=== PATIENT | female | born 1975 | race African-American/Black ===

== ENCOUNTER 2017-09-12 09:58 | Emergency (ER) | payer BC ==
[~2017-09-12] VITALS: Ht 170.2 cm; Wt 63.5 kg
[2017-09-12] MEDS ORDERED: SODIUM CHLORIDE 0.9% 1000ML 1,000 ML IV STA (10:23)
[2017-09-12 11:16] LABS: BASOPHILS # (AUTO) 0.1 (0.0-0.1); BASOPHILS % 0.8 % (0.0-1.0); EOSINOPHILS % 0.6 % (0.0-6.0); HEMATOCRIT 37.3 % (34.2-44.1); HEMOGLOBIN 12.7 g/dL (12.0-16.0); LYMPHOCYTES # (AUTO) 2.1 (1.0-3.2); LYMPHOCYTES % 32.4 % (18.0-39.1); MONOCYTES # (AUTO) 0.4 (0.2-0.8); MONOCYTES % 6.2 % (4.4-11.3); NEUTROPHILS # (AUTO) 3.8 (2.1-6.9); NEUTROPHILS % 59.7 % (38.7-80.0); PLATELET COUNT 277 x10e3/uL (140-360); RED BLOOD COUNT 3.97 x10e6/uL (3.6-5.1)
[2017-09-12 11:28] LABS: INR 0.89; PROTHROMBIN TIME 12.5 seconds (11.9-14.5)
[2017-09-12 11:29] LABS: PARTIAL THROMBOPLASTIN TIME 33.2 seconds (23.8-35.5)
[2017-09-12 11:35] LABS: ALANINE AMINOTRANSFERASE 11 IU/L (0-55); ALBUMIN 3.8 g/dL (3.5-5.0); ALBUMIN/GLOBULIN RATIO 0.9 (0.8-2.0); ALKALINE PHOSPHATASE 49 IU/L (40-150); ANION GAP 11.6 mmol/L (8-16); BLOOD UREA NITROGEN 11 mg/dL (7-26); BUN/CREATININE RATIO 13 (6-25); CALCIUM 8.7 mg/dL (8.4-10.2); CARBON DIOXIDE 22 mmol/L (22-29); CHLORIDE 107 mmol/L (98-107); CREATININE, SERUM 0.88 mg/dL (0.57-1.11); EST GLOMERULAR FILTRATION RATE > 60 ML/MIN (60-); GLUCOSE 92 mg/dL (74-118); POTASSIUM 3.6 mmol/L (3.5-5.1); SODIUM 137 mmol/L (136-145)
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
[2017-09-12 13:47] VITALS: BP 129/71
[2017-09-12] MEDS ORDERED: IOPAMIDOL 370 MG/ML 200 ML INFUS..BTL INJ ONE (21:26)
[2017-09-12] MEDS ORDERED: SODIUM CHLORIDE 0.9% 50ML 50 ML ONE (21:26)
== END 2017-09-12 13:58 | disposition home or self-care (01) ==
LOC: ER 09:58
DX: M54.2 Cervicalgia (principal); S16.1XXA Strain of muscle, fascia and tendon at neck level, initial encounter; M54.5 Low back pain; S20.211A Contusion of right front wall of thorax, initial encounter; S70.01XA Contusion of right hip, initial encounter; V43.53XA Car driver injured in collision with pick-up truck in traffic accident, initial encounter; Y92.488 Other paved roadways as the place of occurrence of the external cause
CPT/HCPCS: 36415; 70450; 71045; 72100; 72125; 73502; 74177; 80053; 84702; 85025; 85610; 85730; 99284; J7030; Q9967

== ENCOUNTER 2017-09-30 08:00 | Outpatient (RCR) | payer BC | END 2017-10-01 | LOC: PT 08:00 | PROVIDERS: ATTEND Family Medicine | DX: M54.2 Cervicalgia (principal); M54.6 Pain in thoracic spine; M54.5 Low back pain ==

== ENCOUNTER 2017-10-27 11:00 | Outpatient (RCR) | payer BC | END 2017-11-01 | LOC: PT 11:00 | PROVIDERS: ATTEND Family Medicine | DX: M54.2 Cervicalgia (principal); M54.6 Pain in thoracic spine; M54.5 Low back pain ==

== ENCOUNTER 2017-11-05 11:14 | Outpatient (RCR) | payer BC | END 2017-12-01 | LOC: PT 11:14 | PROVIDERS: ATTEND Family Medicine | DX: M54.2 Cervicalgia (principal); M54.6 Pain in thoracic spine; M54.5 Low back pain ==

== ENCOUNTER 2018-09-02 11:44 | Emergency (ER) | payer BC ==
[~2018-09-02] VITALS: Ht 170.2 cm; Wt 63.5 kg
[2018-09-02] MEDS ORDERED: CEFTRIAXONE SOD 1 GM VIAL IM ONE (12:15)
== END 2018-09-02 12:30 | disposition home or self-care (01) ==
LOC: FSED 11:44
DX: R05 Cough (principal); R51 Headache; J02.9 Acute pharyngitis, unspecified; J01.00 Acute maxillary sinusitis, unspecified; J01.10 Acute frontal sinusitis, unspecified
CPT/HCPCS: 87400; 99283; J0696

== ENCOUNTER 2018-10-22 07:39 | Emergency (ER) | payer BC ==
[~2018-10-22] VITALS: Ht 170.2 cm; Wt 63.5 kg
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
[2018-10-22 08:01] VITALS: BP 121/82
== END 2018-10-22 08:20 | disposition home or self-care (01) ==
LOC: ER 07:39
DX: J68.9 Unspecified respiratory condition due to chemicals, gases, fumes and vapors (principal)
CPT/HCPCS: 99282

== ENCOUNTER 2019-11-21 23:31 | Emergency (ER) | payer BC ==
[~2019-11-21] VITALS: Ht 170.2 cm; Wt 70.8 kg
[2019-11-22] MEDS ORDERED: CEFTRIAXONE SOD 1 GM VIAL IM ONE (00:15)
[2019-11-22] MEDS ORDERED: KETOROLAC TROMETHAMINE 60 MG/2 ML VIAL IM ONE (00:15)
[2019-11-22] MEDS ORDERED: CEFTRIAXONE SOD 1 GM VIAL ONE (00:17)
[2019-11-22] MEDS ORDERED: KETOROLAC TROMETHAMINE 60 MG/2 ML VIAL ONE (00:17)
[2019-11-22] MEDS ORDERED: LIDOCAINE HCL 1% LOCAL INJ 20 ML VIAL ONE (00:19)
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
[2019-11-22] MEDS ORDERED: BACTRIM DS TAB1 EACH PO (01:33)
[2019-11-22] MEDS ORDERED: ULTRAM50 MG PO (01:33)
[2019-11-22] MEDS ORDERED: KETOROLAC TROME10 MG PO (01:33)
[2019-11-22] MEDS ORDERED: MAGNESIUM CITR296 ML PO (01:33)
== END 2019-11-22 01:50 | disposition home or self-care (01) ==
LOC: FSED 23:31
DX: M54.5 Low back pain (principal); N10 Acute pyelonephritis; N12 Tubulo-interstitial nephritis, not specified as acute or chronic; K59.00 Constipation, unspecified
CPT/HCPCS: 74176; 81003; 99283; J0696; J1885; J2001

== ENCOUNTER 2019-12-04 18:46 | Inpatient (IN) | payer BC, OTHER ==
[~2019-12-04] VITALS: Ht 170.2 cm; Wt 74.4 kg
[~2019-12-04 18:46] MED LIST: BACTRIM DS TAB1 EACH PO; KETOROLAC TROME10 MG PO; MAGNESIUM CITR296 ML PO; ULTRAM50 MG PO
[2019-12-04] MEDS ORDERED: ONDANSETRON HCL INJ 2MG/ML 2ML 2 MG/ML VIAL IV NR (19:01)
[2019-12-04] MEDS ORDERED: KETOROLAC TROMETHAMINE 30 MG/ML VIAL IV NR (19:01)
[2019-12-04] MEDS ORDERED: SODIUM CHLORIDE 0.9% 1000ML 1,000 ML IV STA (19:01)
[2019-12-04 19:18] LABS: BASOPHILS # (AUTO) 0.1 (0.0-0.1); BASOPHILS % 0.9 % (0.0-1.0); EOSINOPHILS # (AUTO) 0.2 (0.0-0.4); EOSINOPHILS % 2.4 % (0.0-6.0); HEMATOCRIT 37.8 % (34.2-44.1); LYMPHOCYTES # (AUTO) 3.9 (1.0-3.2); LYMPHOCYTES % 39.6 % (18.0-39.1); MEAN CORPUSCULAR HEMOGLOBIN 32.3 pg (28-32); MEAN CORPUSCULAR HGB CONC 34.4 g/dL (31-35); MONOCYTES # (AUTO) 0.8 (0.2-0.8); MONOCYTES % 7.9 % (4.4-11.3); NEUTROPHILS # (AUTO) 4.8 (2.1-6.9); NEUTROPHILS % 48.8 % (38.7-80.0); PLATELET COUNT 328 x10e3/uL (140-360); RED BLOOD COUNT 4.02 x10e6/uL (3.6-5.1); RED CELL DISTRIBUTION WIDTH 12.2 % (11.7-14.4)
[2019-12-04 19:24] LABS: CLARITY,URINE CLOUDY (CLEAR); COLOR,URINE YELLOW (YELLOW)
[2019-12-04 19:25] LABS: BILIRUBIN,URINE NEGATIVE (NEGATIVE); KETONES,URINE NEGATIVE (NEGATIVE); LEUKOCYTE ESTERASE ,URINE LARGE (NEGATIVE); NITRITE,URINE NEGATIVE (NEGATIVE); PROTEIN,URINE DIPSTICK NEGATIVE (NEGATIVE); URINE UROBILINOGEN 0.2 mg/dL (0.2 - 1)
[2019-12-04 19:26] LABS: PREGNANCY TEST, URINE NEGATIVE (NEGATIVE)
[2019-12-04] MEDS ORDERED: CEFTRIAXONE SOD 2 GM/NS 100 ML 100 ML IV ONE (19:30)
[2019-12-04 19:31] LABS: BACTERIA,URINE MODERATE /HPF; EPITHELIAL CELLS,URINE MANY /LPF; RBC,URINE 0-5 /HPF (0-5); WBC,URINE (MAN) >50 /HPF (0-5)
[2019-12-04 19:42] LABS: ALANINE AMINOTRANSFERASE 13 IU/L (0-55); ALBUMIN 3.9 g/dL (3.5-5.0); ALBUMIN/GLOBULIN RATIO 0.9 (0.8-2.0); ALKALINE PHOSPHATASE 70 IU/L (40-150); ANION GAP 13.3 mmol/L (8-16); BLOOD UREA NITROGEN 12 mg/dL (7-26); BUN/CREATININE RATIO 14 (6-25); CALCIUM 9.6 mg/dL (8.4-10.2); CARBON DIOXIDE 24 mmol/L (22-29); CHLORIDE 103 mmol/L (98-107); CREATININE, SERUM 0.86 mg/dL (0.57-1.11); EST GLOMERULAR FILTRATION RATE > 60 ML/MIN (60-); GLUCOSE 94 mg/dL (74-118); POTASSIUM 4.3 mmol/L (3.5-5.1); SODIUM 136 mmol/L (136-145)
[2019-12-04] MEDS ORDERED: SODIUM CHLORIDE 0.9% 50ML 50 ML ONE (19:59)
[2019-12-04] MEDS ORDERED: IOPAMIDOL 370 MG/ML 200 ML INFUS..BTL INJ ONE (19:59)
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
[2019-12-04] MEDS ORDERED: SODIUM CHLORIDE 0.9% 1000ML 1,000 ML IV SCH (21:45)
[2019-12-04 23:15] VITALS: BP 123/79
[2019-12-04] MEDS: MORPHINE SULFATE 2 MG/ML SYR 1ML IV PRN (23:15)
[2019-12-04] MEDS: ONDANSETRON HCL INJ 2MG/ML 2ML 2 MG/ML VIAL IV PRN (23:15)
[2019-12-04] MEDS: LACTATED RINGER'S 1,000 ML INJ SCH (23:40)
--- NOTE | 2019-12-04 23:50 | NUR ---
RECEIVED PATIENT FROM ER IN STABLE CONDITION AOX4, NO SIGNS OF DISTRESS NOTED. IV FLUIDS ARE RUNNING AT ORDERED RATE AND PATIENT VOICED PAIN AT A LEVEL OF 4 AND WAS PREVIOUSLY MEDICATED ORDERED. DR. Varghese AMATO HAS SEEN AND SPOKE WITH PATIENT ADVANCED HER DIET TO CLEAR LIQUIDS. BED IS IN LOWEST POSITION, BOTH SIDE RAILS ARE UP, CALL LIGHT IS WITHIN EASY REACH, WILL CONTINUE TO MONITOR.
[2019-12-05] VITALS (7 sets, daily range): BP systolic 102–124; BP diastolic 58–71
[2019-12-05] MEDS: CEFOXITIN 1GM/ D5W 50ML 50 ML IV SCH ×3 (00:30→11:27)
[2019-12-05] MEDS: ONDANSETRON HCL INJ 2MG/ML 2ML 2 MG/ML VIAL IV PRN ×2 (04:01→10:55)
[2019-12-05] MEDS: MORPHINE SULFATE 2 MG/ML SYR 1ML IV PRN ×2 (04:01→08:20)
[2019-12-05] MEDS: LACTATED RINGER'S 1,000 ML INJ SCH ×2 (05:04→10:16)
--- NOTE | 2019-12-05 07:22 | NUR ---
ASSUMED CARE. PATIENT RESTING IN BED. AAOX3. ACYANOTIC. NO DISTRESS NOTED. BED LOW. SIDE RAILS UP X2. CALL LIGHT IN REACH.
[2019-12-05] MEDS ORDERED: PROMETHAZINE 12.5MG/ NACL 0.9% 12.5 MG/50 ML BAG IV PRN (15:00)
[2019-12-05] MEDS ORDERED: ACETAMINOPHEN 325 MG TAB PO PRN (15:30)
--- NOTE | 2019-12-05 20:45 | NUR ---
PATIENT IS IN STABLE CONDITION AOX4, NO SIGNS OF DISTRESS NOTED. IV FLUIDS ARE CURRENTLY DISCONTINUED, AND DIET IS CURRENTLY REGULAR. PATIENT VOICED PAIN AT A LEVEL OF 4 AND WAS PREVIOUSLY MEDICATED ORDERED. INFORMED PATIENT THAT DR. Varghese AMATO WILL BE SPEAKING WITH HER REGARDING ANY UPCOMING TESTS OR PROCEDURES. BED IS IN LOWEST POSITION, BOTH SIDE RAILS ARE UP, CALL LIGHT IS WITHIN EASY REACH, WILL CONTINUE TO MONITOR.
[2019-12-05] MEDS: ACETAMINOPHEN/CODEINE 300MG - 30MG TAB PO PRN (23:00)
[2019-12-05] MEDS ORDERED: BISACODYL 5 MG TAB EC PO ONE ×2 (23:15→23:45)
[2019-12-06] VITALS (7 sets, daily range): BP systolic 98–115; BP diastolic 69–87
[2019-12-06] MEDS ORDERED: BISACODYL 5 MG TAB EC PO ONE ×2 (00:15→00:45)
[2019-12-06] MEDS ORDERED: CITRATE OF MAGNESIA 300ML BOTTLE PO ONE ×3 (05:00→22:15)
[2019-12-06 05:59] LABS: BASOPHILS # (AUTO) 0.1 (0.0-0.1); BASOPHILS % 0.9 % (0.0-1.0); EOSINOPHILS # (AUTO) 0.3 (0.0-0.4); EOSINOPHILS % 3.7 % (0.0-6.0); HEMATOCRIT 34.6 % (34.2-44.1); HEMOGLOBIN 11.5 g/dL (12.0-16.0); LYMPHOCYTES # (AUTO) 3.6 (1.0-3.2); LYMPHOCYTES % 38.7 % (18.0-39.1); MEAN CORPUSCULAR HEMOGLOBIN 31.9 pg (28-32); MEAN CORPUSCULAR HGB CONC 33.2 g/dL (31-35); MEAN CORPUSCULAR VOLUME 95.8 fL (81-99); MONOCYTES # (AUTO) 0.6 (0.2-0.8); MONOCYTES % 6.2 % (4.4-11.3); NEUTROPHILS # (AUTO) 4.6 (2.1-6.9); NEUTROPHILS % 50.1 % (38.7-80.0); PLATELET COUNT 252 x10e3/uL (140-360); RED BLOOD COUNT 3.61 x10e6/uL (3.6-5.1); RED CELL DISTRIBUTION WIDTH 12.1 % (11.7-14.4)
[2019-12-06 06:25] LABS: ALANINE AMINOTRANSFERASE 22 IU/L (0-55); ALBUMIN 3.2 g/dL (3.5-5.0); ALKALINE PHOSPHATASE 54 IU/L (40-150); ANION GAP 9.2 mmol/L (8-16); BILIRUBIN,DIRECT 0.2 mg/dL (0.0-0.5); BLOOD UREA NITROGEN 7 mg/dL (7-26); BUN/CREATININE RATIO 9 (6-25); CALCIUM 9.1 mg/dL (8.4-10.2); CARBON DIOXIDE 27 mmol/L (22-29); CHLORIDE 105 mmol/L (98-107); EST GLOMERULAR FILTRATION RATE > 60 ML/MIN (60-); GLUCOSE 89 mg/dL (74-118); LIPASE 48 U/L (8-78); POTASSIUM 4.2 mmol/L (3.5-5.1); SODIUM 137 mmol/L (136-145)
--- NOTE | 2019-12-06 07:02 | NUR ---
bedside shift report received from PM nurse; pt awake, alert, oriented, no signs of distress. in stable condition. all safety measures in place.
--- NOTE | 2019-12-06 12:54 | NUR ---
SPOKE WITH DR. Varghese AMATO WHO STATES WE ARE WAITING ON COVID-19 RESULTS; STATES IF NO RESULTS BACK WITHIN 1 TO 1.5 HOURS, PT CAN HAVE CLEAR LIQUIDS.
--- NOTE | 2019-12-06 16:44 | NUR ---
informed Dr. Muller of negative COVID-19 results; he states pt will have EGD/colonoscopy tomorrow AM.
--- NOTE | 2019-12-06 18:18 | Diagnostic Imaging Report ---
Transvaginal and transabdominal ultrasound Indication: Left-sided pain, acute pancreatitis Technique: Transabdominal ultrasound performed for global evaluation of the uterus. Transvaginal ultrasound performed for detailed evaluation of the endometrium and ovaries. Selected images provided for review. Comparison: CT abdomen/pelvis 12/04/2019 Findings: LMP: 10/19/2019 Transabdominally the uterus measures approximately 5.5 x 6.5 x 8.9 cm. The bladder is collapsed . Transvaginally, the uterus is lobulated in contour. Multiple fibroids: * Subserosal to the left of midline or 0.2 x 4.4 x 4.9 cm * Intramural to the right of midline measures 1.3 x 1.2 x 1.3 cm. * Submucosal fibroid measures 9 mm and may contain a punctate calcification. The endometrial stripe measures 0.6 cm, is linear and echogenic and is normal. The cervix is normal. No free fluid in the cul de sac. Right ovary is not visualized due to bowel gas. Left ovary measures approximately 2.7 x 1.9 x 2.2 cm. The echotexture is normal. No mass. Adnexa: Clear. Blood flow: Blood flow to the left ovary is visualized on color Doppler interrogation. IMPRESSION: 1. Fibroid uterus with a 9 mm submucosal fibroid. Normal endometrium. 2. Normal left ovary. Nonvisualization of the right ovary. Signed by: Dr. Zulema Rangel MD on 12/06/2019 6:15 PM
[2019-12-06] MEDS: ACETAMINOPHEN/CODEINE 300MG - 30MG TAB PO PRN (20:43)
--- NOTE | 2019-12-06 21:59 | NUR ---
SPOKE TO MD Varghese AMATO VIA TELEPHONE. SEE ORDERS.
[2019-12-07] VITALS: BP 105/75
[2019-12-07 04:00] VITALS: BP 99/56
--- NOTE | 2019-12-07 05:51 | NUR ---
RECHECKED B/P. . NOTIFIED MD Nancy BARROSO. NO NEW ORDERS. WILL CONTINUE TO MONITOR.
--- NOTE | 2019-12-07 07:12 | NUR ---
received bedside shift report from PM nurse; pt in stable condition.
--- NOTE | 2019-12-07 07:13 | NUR ---
REPORT GIVEN TO DAYSNCFT NURSE. RESTING IN BED. AAOX3. NO ADVERSE SIGNS. NO SIGNS OF INFILTRATION TO IV. SR UPX2. BED LOCKED AND IN LOW POSITION. CALL LIGHT WITHIN REACH.
[2019-12-07 07:48] VITALS: BP 99/56
[2019-12-07 08:08] VITALS: BP 112/78
--- NOTE | 2019-12-07 08:31 | NUR ---
PT LEFT FOR OR VIA STRETCHER; PT AWAKE, ALERT, ORIENTED, LEFT IN STABLE CONDITION.
--- NOTE | 2019-12-07 11:00 | NUR ---
REPORT FROM RECOVERY: PT HAD EGD AND COLONSCOPY. ON UPPER GI, MILD DISTAL ESOPHAGITIS, GASTRITIS AND GASTRIC POLYP FOUND. BIOPSIES OBTAINED. LOWER GI SHOWED COLON NORMAL. PT RECEIVED 5 MG VERSED, 250 LR, AND PROPOFOL DURING PROCEDURE. PT TOLERATING ICE WATER PO. PT'S BLOOD PRESSURE 96/66; PT REMAINS ASYMPTOMATIC AND AROUSABLE TO VERBAL STIMULI. RESPIRATIONS 16/MINUTE, O2 SAT 100% ON RA.
--- NOTE | 2019-12-07 11:30 | NUR ---
SPOKE WITH DR. Varghese AMATO WHO STATES PT IS OKAY TO BE DISCHARGED FROM HIS STANDPOINT, AND HAVE PT CALL HIS OFFICE TO SET UP FOLLOW UP APPOINTMENT.
--- NOTE | 2019-12-07 11:49 | Operative Report ---
DATE OF PROCEDURE: 12/07/2019 SURGEON: Dale Muller MD PROCEDURES: EGD with polypectomy and biopsies, and a colonoscopy with biopsies. INDICATIONS FOR EGD: Left upper quadrant pain. INDICATIONS FOR COLONOSCOPY: Left-sided abdominal pain. MEDICATIONS: The patient was done under MAC, please see anesthesiologist's note. PROCEDURE IN DETAIL: With the patient in left lateral decubitus position, a flexible fiberoptic Olympus gastroscope was introduced into the esophagus under direct visualization without any difficulty. There was some patchy erythema noted in distal esophagus. The scope was then advanced with ease into the stomach. Mucosa overlying the antrum and the body revealed some patchy erythema and [id number] edema, biopsies were obtained, and sent to stain for H. pylori. Pylorus was of normal contour and shape, it was intubated with ease and the scope was advanced all the way to the second portion of the duodenum. The scope was then withdrawn slowly, mucosa overlying the proximal second portion, and the duodenal bulb appeared to be within normal limits. The scope was then withdrawn back into the stomach and retroflexed mucosa overlying the fundus and cardia appeared to be within normal limits. Approximately, 5 mm sessile polyp was noted in the proximal body and that was partially excised with the cold biopsy forceps. The scope was then straightened out, it was subsequently withdrawn. The patient tolerated the procedure well. IMPRESSION: 1. Mild distal esophagitis. 2. Gastritis, biopsied, biopsies sent to stain for H. pylori. 3. Approximately, 5 mm polyp in proximal body, partially excised with cold biopsy forceps. PLAN: 1. Follow up histology. 2. Initiate Protonix 40 mg one p.o. q.a.m. a.c. DESCRIPTION OF PROCEDURE: The patient was then turned around and after adequate lubrication of the anal canal, a flexible fiberoptic Olympus colonoscope was inserted into the rectum with ease and advanced all the way to the cecum. It was then withdrawn slowly, mucosa overlying the cecum, ascending colon, transverse colon appeared to be within normal limits. Low-grade mild inflammatory changes noted in the left colon, multiple random biopsies were obtained. The scope was then retroflexed into the distal rectum and the area around the dentate line appeared to be within normal limits. The scope was then straightened out, it was subsequently withdrawn. The patient tolerated the procedure well. IMPRESSION: 1. Patchy low-grade inflammatory changes noted in the left colon. 2. Random biopsies were obtained. PLAN: 1. Followup histology. 2. Initiate high-fiber, low-fat diet. 3. Initiate high-fiber supplement. 4. 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 Dale Muller MD [facility] [place] /[id number]
[2019-12-07 12:00] VITALS: BP 121/83
[2019-12-07] MEDS ORDERED: MIDAZOLAM HCL 5 MG/ML VIAL ONE (14:03)
[2019-12-07] MEDS ORDERED: LIDOCAINE HCL 2% LOCAL INJ 5 ML SDV VIAL INJ ONE (19:34)
[2019-12-07] MEDS ORDERED: PROPOFOL IV EMULSION 10 MG/ML 20 ML VIAL ONE (19:34)
--- NOTE | 2019-12-07 22:52 | Discharge Summary ---
PRIMARY CARE DOCTOR: Dr. Fara Triana. FINAL DIAGNOSIS: Abdominal pain of unclear etiology. SECONDARY DIAGNOSIS: Gastritis. CONSULTS: Dr. Muller, GI. PROCEDURE/STUDIES PERFORMED: 1. Abdominal CT. 2. Pelvic ultrasound. 3. EGD. 4. Colonoscopy. HISTORY: Per [facility]. HOSPITAL COURSE: The patient was admitted. Initially, her lipase was elevated; however, the repeat is normal. I strongly feel that it was false-positive. Clinically, it is not consistent with pancreatitis. The patient also does not have UTI either. Her urine culture is negative. The patient has been dealing with left-sided abdominal and back pain for the last 2 months. Recently, she did have some vaginal discharge. There is also some fibroids, so which raised the possibility of this being NEUROLOGIST in etiology. I have advised the patient to follow up with NEUROLOGIST. The other thing is given gastritis, the patient was advised to take [id number] PPI for 2 weeks to see if her pain improves. The patient was seen and examined today. I have printed out a report for her for the CT and ultrasound. CT did show a 2 cm hepatic lesion. The patient will need to have a followup in 6 to 12 months. The patient understands. The patient will follow up with her primary care doctor in 1 to 2 weeks. CONDITION ON DISCHARGE: Improved. DISCHARGE MEDICATIONS: Please see medication reconciliation form. I took 32 minutes total to discharge this patient. YiMD GLORIA Payton/[place] /[id number]
== END 2019-12-07 15:31 | disposition home or self-care (01) | DRG 392 ==
LOC: ER 18:46 → INTOOBSV 22:25 → ERHOLD 22:25 → OBSVTOIN 22:25 → MED/SURG 22:46
PROVIDERS: ADMIT Internal Medicine; ATTEND Internal Medicine
PROC: 0DB68ZX Excision of Stomach, Via Natural or Artificial Opening Endoscopic, Diagnostic (ICD-10-PCS; principal; 2019-12-07 08:30)
PROC: 0DB78ZX Excision of Stomach, Pylorus, Via Natural or Artificial Opening Endoscopic, Diagnostic (ICD-10-PCS; 2019-12-07 08:30)
PROC: 0DBG8ZX Excision of Left Large Intestine, Via Natural or Artificial Opening Endoscopic, Diagnostic (ICD-10-PCS; 2019-12-07 08:30)
DX: R10.12 Left upper quadrant pain (principal); K29.60 Other gastritis without bleeding; R10.9 Unspecified abdominal pain; R16.0 Hepatomegaly, not elsewhere classified; K20.9 Esophagitis, unspecified; K31.7 Polyp of stomach and duodenum
CPT/HCPCS: 36415; 43239; 45378; 45380; 74177; 76830; 76856; 80048; 80053; 80076; 81001; 81025; 83690; 85025; 87086; 87635; 88305; 88312; 99284; J0696; J1885; J2001; J2250; J2270; J2405; J7030; J7121; Q9967

== ENCOUNTER → 2019-12-28 | Outpatient (CLI) | payer BC ==
[~2019-12-28] MED LIST changes: +GADOBENATE DIMEGLUMINE 1 ML IV ONE; +SODIUM CHLORIDE 0.9% 100 ML ONE
--- NOTE | 2019-12-29 17:55 | Diagnostic Imaging Report ---
TECHNIQUE: MRI of the abdomen WITHOUT and WITH intravenous contrast. INDICATION: 44-year-old woman with liver lesion. COMPARISON: Abdomen and pelvis CT 12/04/2019 and 09/12/2017. FINDINGS: LOWER THORAX: Unremarkable. LIVER: No hepatic signal abnormality. 1.2 x 1.8 cm T2 hyperintense lesion in segment 7 with delayed centripetal enhancement, consistent with a hemangioma; this lesion is unchanged in size since 09/12/2017. Additional subcentimeter T2 hyperintense lesions without definite enhancement measure up to 0.8 cm and are likely cysts. BILIARY: Gallbladder is unremarkable. No biliary ductal dilatation or filling defect. SPLEEN: No splenomegaly. PANCREAS: No focal masses or ductal dilatation. ADRENALS: No adrenal nodules. KIDNEYS/URETERS: No hydronephrosis or solid mass lesions. PERITONEUM/RETROPERITONEUM: No free fluid. LYMPH NODES: No lymphadenopathy. VESSELS: Unremarkable. GI TRACT: No distention or wall thickening. BONES AND SOFT TISSUES: Unremarkable. IMPRESSION: Hemangioma in the right hepatic lobe. Subcentimeter hepatic cysts. Signed by: Casper Mock MD on 12/29/2019 4:50 PM
== END ==
LOC: MRI 14:36
PROVIDERS: ATTEND Internal Medicine Gastroenterology
DX: K76.9 Liver disease, unspecified (principal)
CPT/HCPCS: 74183; J7050

== ENCOUNTER → 2020-08-03 | Outpatient (CLI) | payer OTHER ==
[~2020-08-03] MED LIST changes: +COVID-19 VACC, MRNA(MODERNA)/PF 100 MCG/0.5 ML VIAL IM ONE; -GADOBENATE DIMEGLUMINE 1 ML IV ONE; -SODIUM CHLORIDE 0.9% 100 ML ONE
== END ==
LOC: VACCPMC 17:00
DX: Z23 Encounter for immunization (principal); Z20.828 Contact with and (suspected) exposure to other viral communicable diseases

== ENCOUNTER → 2020-09-10 | Outpatient (CLI) | payer OTHER | END | DRG 951 | LOC: VACCPMC 07:52 | DX: Z23 Encounter for immunization (principal); Z20.822 Contact with and (suspected) exposure to COVID-19 | CPT/HCPCS: 0012A; 91301 ==

== ENCOUNTER → 2021-05-31 | Outpatient (CLI) | payer OTHER | LOC: VACCPMC 07:27 | DX: Z23 Encounter for immunization (principal); Z20.822 Contact with and (suspected) exposure to COVID-19 | CPT/HCPCS: 91301 ==

== ENCOUNTER 2021-07-01 14:32 | Emergency (ER) | payer BC, OTHER ==
[~2021-07-01] VITALS: Ht 170.2 cm; Wt 69.1 kg
[~2021-07-01 14:32] MED LIST changes: -COVID-19 VACC, MRNA(MODERNA)/PF 100 MCG/0.5 ML VIAL IM ONE
[2021-07-01] MEDS ORDERED: AZITHROMYCIN250 MG PO (15:54)
[2021-07-01] MEDS ORDERED: DEXAMETHASONE SOD PHOS INJ 4 MG/ML SDV IM ONE (16:00)
== END 2021-07-01 16:06 | disposition home or self-care (01) ==
LOC: FSED 15:44
DX: J02.9 Acute pharyngitis, unspecified (principal); R59.0 Localized enlarged lymph nodes
CPT/HCPCS: 83518; 96372; 99283; J1100

== ENCOUNTER → 2024-08-02 | Outpatient (REF) | payer BC ==
[~2024-08-02] MED LIST changes: +AZITHROMYCIN250 MG PO
== END ==
LOC: MAMMO 16:09
PROVIDERS: ATTEND Nurse Practitioner Primary Care
DX: Z12.31 Encounter for screening mammogram for malignant neoplasm of breast (principal)
CPT/HCPCS: 77067